=== PATIENT | female | born 1975 | race Caucasian/White ===

== ENCOUNTER → 2017-05-23 | Outpatient (CLI) | payer OTHER ==
[~2017-05-23] MED LIST: GADOBUTROL 10 ML VIAL IVP ONE
== END ==
LOC: FIMAGING 09:54
PROVIDERS: ATTEND Obstetrics & Gynecology
DX: Z12.39 Encounter for other screening for malignant neoplasm of breast (principal); Z80.3 Family history of malignant neoplasm of breast
CPT/HCPCS: 0159T; A9585; C8908

== ENCOUNTER → 2017-06-29 | Outpatient (CLI) | payer OTHER | LOC: BRMIMAGING 09:14 | PROVIDERS: ATTEND Obstetrics & Gynecology | DX: N60.11 Diffuse cystic mastopathy of right breast (principal) | CPT/HCPCS: 76641-PO ==

== ENCOUNTER → 2017-12-19 | Outpatient (CLI) | payer OTHER | LOC: BRMIMAGING 11:13 | PROVIDERS: ATTEND Obstetrics & Gynecology | DX: Z12.31 Encounter for screening mammogram for malignant neoplasm of breast (principal); Z80.3 Family history of malignant neoplasm of breast ==

== ENCOUNTER → 2019-03-31 | Outpatient (CLI) | payer OTHER | LOC: FIMAGING 10:01 ==

== ENCOUNTER → 2019-04-04 | Outpatient (CLI) | payer OTHER | LOC: FIMAGING 10:15 ==